=== PATIENT | female | born 1970 | race Caucasian/White ===

== ENCOUNTER 2020-09-28 12:35 | Emergency (ER) | payer OTHER | END 2020-09-28 17:55 | disposition home or self-care (01) | LOC: FER 12:35 | DX: M77.8 Other enthesopathies, not elsewhere classified (principal); F17.210 Nicotine dependence, cigarettes, uncomplicated; Z98.890 Other specified postprocedural states | CPT/HCPCS: 71046; 73080 ==

== ENCOUNTER 2021-06-11 16:46 | Emergency (ER) | payer OTHER ==
[2021-06-11 19:05] LABS: BASOPHIL 0.5 % (0-2); EOSINOPHIL 0 % (0-5); HCT 43.3 % (37.0-47.0); LYMPHOCYTE 27.2 % (15-48); MCH 29.9 pg (25.0-31.0); MCHC 32.3 g/dL (32.0-36.0); MCV 92.5 fL (78.0-100.0); MONOCYTE 4.2 % (0-12); NEUTROPHIL 67.6 % (41-80); NRBC 0; PLT 130 K/uL (150-400); RBC 4.68 M/uL (4.20-5.40); RDW 12.9 % (11.5-14.0); WBC 3.8 K/uL (4.0-10.5)
[2021-06-11 19:43] LABS: ALBUMIN 3.3 g/dL (3.4-5.0); BILIRUBIN - TOTAL 0.3 mg/dL (0.2-1.0); BUN/CREAT RATIO (CALC) 26.3 RATIO; CREATININE 0.76 mg/dL (0.51-0.95); GLOBULIN (CALCULATION) 3.9 g/dL; POTASSIUM 4.1 mmol/L (3.5-5.1); TOTAL PROTEIN 7.2 g/dL (6.4-8.2)
[2021-06-11] MEDS ORDERED: TESSALON PERLE100 MG PO (21:15)
[2021-06-11] MEDS ORDERED: ZOFRAN4 M1 PO (21:20)
== END 2021-06-11 21:45 | disposition home or self-care (01) ==
LOC: FER 16:46
PROVIDERS: Physician Assistant
DX: U07.1 COVID-19 (principal); J12.82 Pneumonia due to coronavirus disease 2019; I10 Essential (primary) hypertension; F17.210 Nicotine dependence, cigarettes, uncomplicated
CPT/HCPCS: 36415; 71046; 71275; 80053; 85025; 85379; J7040; Q9967